=== PATIENT | male | born 1935 | race Caucasian/White ===

== ENCOUNTER 2016-10-06 19:00 | Emergency (ER) | payer MEDICARE, OTHER ==
[~2016-10-06] VITALS: Ht 170.2 cm; Wt 104.1 kg
[2016-10-06] MEDS ORDERED: SODIUM CHLORIDE FLUSH 10ML SYR IVF ONE (19:30)
[2016-10-06] MEDS ORDERED: METF500T4 PO (19:39)
[2016-10-06] MEDS ORDERED: METO25TA35 PO (19:39)
[2016-10-06 19:48] LABS: BLOOD UREA NITROGEN 17 mg/dL (7-18)
[2016-10-06 19:53] LABS: IS PT STATUS REG ER OR PRE ER? YES
[2016-10-06 21:17] VITALS: BP 118/57
== END 2016-10-06 21:20 | disposition home or self-care (01) ==
LOC: ED 20:36
DX: I48.2 Chronic atrial fibrillation (principal); E11.9 Type 2 diabetes mellitus without complications
CPT/HCPCS: 36415; 71010; 80048; 82040; 84484; 85025; 85610; 85730; 93005; 99285